=== PATIENT | male | born 1985 | race Two or more races ===

== ENCOUNTER 2022-06-06 06:32 | Emergency (ER) | payer OTHER ==
[~2022-06-06] VITALS: Ht 180.3 cm; Wt 76.2 kg
== END 2022-06-06 14:11 | disposition home or self-care (01) ==
LOC: ER 06:32
DX: L98.492 Non-pressure chronic ulcer of skin of other sites with fat layer exposed (principal); F19.10 Other psychoactive substance abuse, uncomplicated